=== PATIENT | male | born 1960 | race Caucasian/White ===

== ENCOUNTER → 2016-07-10 | Outpatient (CLI) | payer OTHER ==
[~2016-07-10] MED LIST: ALBUTEROL INH; AMARYL 2MG TABLE2 MG PO; ANTIVERT 25MG T25 MG PO; ASPIRIN 325MG325 MG PO; ASPIRIN EC81 MG PO; BYDUREON P2 MG/0.65 SQ; CAPOZIDE 25/15 T1 EA PO; CATAPRES 0.1MG0.1 MG PO; CLONIDINE HCL0.3 MG PO; FLEXERIL 10 MG10 MG PO; HYDRALAZINE HCL50 MG PO; IBUPROFEN600 MG PO; IBUPROFEN800 MG PO; IPRAT-ALBUT 0.5-3 ML INH; JANUVIA100 MG PO; LIPITOR TAB 2020 MG PO; LISINOPRIL40 MG PO; LOVAZA 1 GM1 G PO; METFORMIN HCL1000 MG PO; NEURONTIN 300300 MG PO; NITRO-TIME2.5 MG PO; NORVASC 5 MG TAB5 MG PO; PLAVIX 75 MG TA75 MG PO; PROTONIX40 M1 PO; TOPROL XL100 MG PO; TRICOR 145 MG145 MG PO; TYLENOL 325MG325 MG PO; VALACYCLOVIR500 MG PO; VALTREX500 MG PO; VENTOLIN HFA 66.7 GM INH; VENTOLIN HFA8 GM INH; VITAMIN D 11000 UNIT PO; WELLBUTRIN SR150 M1 PO; ZANTAC300 MG PO; ZYLOPRIM 100 M100 MG PO
[2016-07-10 16:17] LABS: BUN/CREATININE RATIO 19 (0-10)
== END ==
LOC: US 15:35
PROVIDERS: Internal Medicine Nephrology
DX: M32.9 Systemic lupus erythematosus, unspecified (principal); R80.9 Proteinuria, unspecified; N28.1 Cyst of kidney, acquired
CPT/HCPCS: 36415; 80048; 81001; 82043; 82570; 84156; 86039; 86160; 86225

== ENCOUNTER → 2016-08-27 | Outpatient (CLI) | payer OTHER | LOC: HEART 5 08:18 | DX: I20.9 Angina pectoris, unspecified (principal); R94.39 Abnormal result of other cardiovascular function study | CPT/HCPCS: 78452; A9502; J2785 ==

== ENCOUNTER → 2020-06-24 | Outpatient (CLI) | payer MEDICARE, OTHER ==
[~2020-06-24] MED LIST changes: +ADVAIR 250-501 EACH INH; +ALL DAY ALLERGY10 M2 PO; -AMARYL 2MG TABLE2 MG PO; +AMARYL4 MG PO; +ARTIFICIAL TEAR15 ML OP; +ASPIRIN EC325 MG PO; -ASPIRIN EC81 MG PO; +CATAPRES0.2 MG PO; -CLONIDINE HCL0.3 MG PO; +FENOFIBRATE160 MG PO; +FEOSOL325 MG PO; +FLONASE 0.05% N16 GM; +GABAPENTIN800 MG PO; +HYDRALAZINE HC100 MG PO; +HYDROCHLOROTHIA25 MG PO; +HYDROCODON-ACE1 EAC4 PO; +HYDROCODONE-AC1 EACH PO; +HYDROXYZINE HCL10 MG PO; +IRON325 M1 PO; +JARDIANCE25 MG PO; +LABETALOL HCL100 MG PO; +LEVOFLOXACIN750 MG PO; -LIPITOR TAB 2020 MG PO; +LIPITOR80 MG PO; +METHOCARBAMOL500 MG PO; +NEURONTIN800 MG PO; -NITRO-TIME2.5 MG PO; +NITRO-TIME9 MG PO; +NITROSTAT 0.40.4 MG SL; -NORVASC 5 MG TAB5 MG PO; +NORVASC10 MG PO; +RANEXA1000 MG PO; -TRICOR 145 MG145 MG PO; +TRICOR PO; +VITAMIN B-121000 MCG PO; +VITAMIN D3125 MCG PO; +VITAMIN D350 MC3 PO
== END ==
LOC: KOH-I 14:53
DX: M50.30 Other cervical disc degeneration, unspecified cervical region (principal); M50.322 Other cervical disc degeneration at C5-C6 level
CPT/HCPCS: 72125

== ENCOUNTER → 2020-07-01 | Outpatient (CLI) | payer MEDICARE, OTHER | LOC: HEART 5 10:12 | DX: I50.22 Chronic systolic (congestive) heart failure (principal); I25.5 Ischemic cardiomyopathy; I51.7 Cardiomegaly; I34.0 Nonrheumatic mitral (valve) insufficiency | CPT/HCPCS: 93306 ==

== ENCOUNTER → 2020-07-05 | Outpatient (CLI) | payer MEDICARE, OTHER | LOC: RAD 11:59 | DX: I11.0 Hypertensive heart disease with heart failure (principal); I50.22 Chronic systolic (congestive) heart failure; I25.5 Ischemic cardiomyopathy; I47.2 Ventricular tachycardia; Z45.02 Encounter for adjustment and management of automatic implantable cardiac defibrillator; Z20.822 Contact with and (suspected) exposure to COVID-19 | CPT/HCPCS: 71046; U0003 ==

== ENCOUNTER 2020-07-09 07:24 | Outpatient (CLI) | payer MEDICARE, OTHER ==
[~2020-07-09] VITALS: Ht 188 cm; Wt 96.2 kg
[~2020-07-09 07:24] MED LIST changes: -ADVAIR 250-501 EACH INH; -ALL DAY ALLERGY10 M2 PO; -FLONASE 0.05% N16 GM; -HYDROCODON-ACE1 EAC4 PO; -HYDROCODONE-AC1 EACH PO; -HYDROXYZINE HCL10 MG PO; -IRON325 M1 PO; -JARDIANCE25 MG PO; -LEVOFLOXACIN750 MG PO; -METHOCARBAMOL500 MG PO; -NITROSTAT 0.40.4 MG SL; -VITAMIN D350 MC3 PO
[2020-07-09] MEDS ORDERED: ALL DAY ALLERGY10 M2 PO (08:27)
[2020-07-09] MEDS ORDERED: ADVAIR 250-501 EACH INH (08:27)
[2020-07-09] MEDS ORDERED: FLONASE 0.05% N16 GM (08:28)
[2020-07-09] MEDS ORDERED: HYDROXYZINE HCL10 MG PO (08:29)
[2020-07-09] MEDS ORDERED: HYDROCODONE-AC1 EACH PO (08:29)
[2020-07-09] MEDS ORDERED: JARDIANCE25 MG PO (08:29)
[2020-07-09] MEDS ORDERED: METHOCARBAMOL500 MG PO (08:30)
[2020-07-09] MEDS ORDERED: NITROSTAT 0.40.4 MG SL (08:30)
[2020-07-09] MEDS ORDERED: VITAMIN D350 MC3 PO (08:31)
[2020-07-09] MEDS ORDERED: VENTOLIN HFA 66.7 GM INH (08:31)
[2020-07-09] MEDS ORDERED: HYDROCODON-ACE1 EAC4 PO (10:40)
[2020-07-09] MEDS ORDERED: LEVOFLOXACIN750 MG PO (10:40)
[2020-07-09] MEDS ORDERED: IRON325 M1 PO (13:36)
--- NOTE | 2020-07-10 13:11 | NUR ---
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 FOLLOW UP WITH MD SCHEDULED ONE WEEK AND 4 WEEKS. PAIN MED Q 6HRS PRN FOR 5 DAYS ONLY TAKE LEVAQUIN UNTIL COMPLETE. MEDS AT PHARMACY PAWEL [facility] VERBALIZED UNDERSTANDING. AURORA HUTCHINSON R.N.
== END 2020-07-10 14:15 | disposition home or self-care (01) ==
LOC: CATH 07:24 → MED SURG 4 10:59 → CATH 07-10 14:15
DX: Z45.02 Encounter for adjustment and management of automatic implantable cardiac defibrillator (principal); I11.0 Hypertensive heart disease with heart failure; I50.22 Chronic systolic (congestive) heart failure; I25.5 Ischemic cardiomyopathy; I47.2 Ventricular tachycardia; I25.119 Atherosclerotic heart disease of native coronary artery with unspecified angina pectoris; I25.2 Old myocardial infarction; J44.9 Chronic obstructive pulmonary disease, unspecified; K21.9 Gastro-esophageal reflux disease without esophagitis; F32.9 Major depressive disorder, single episode, unspecified; E78.5 Hyperlipidemia, unspecified; M06.9 Rheumatoid arthritis, unspecified; E11.9 Type 2 diabetes mellitus without complications; F17.210 Nicotine dependence, cigarettes, uncomplicated; Z95.5 Presence of coronary angioplasty implant and graft; Z88.8 Allergy status to other drugs, medicaments and biological substances; Z79.82 Long term (current) use of aspirin; Z79.02 Long term (current) use of antithrombotics/antiplatelets; Z79.84 Long term (current) use of oral hypoglycemic drugs; Z79.899 Other long term (current) drug therapy
CPT/HCPCS: 33240; 82962; 93641; 94664; 94760; 99152; 99153; C1721; J2250; J2270; J3010; J3370; J7040; J7050; J7070

== ENCOUNTER → 2020-10-10 | Outpatient (CLI) | payer MEDICARE, OTHER ==
[~2020-10-10] MED LIST changes: +ADVAIR 250-501 EACH INH; +ALL DAY ALLERGY10 M2 PO; +FLONASE 0.05% N16 GM; +HYDROCODON-ACE1 EAC4 PO; +HYDROCODONE-AC1 EACH PO; +HYDROXYZINE HCL10 MG PO; +IRON325 M1 PO; +JARDIANCE25 MG PO; +LEVOFLOXACIN750 MG PO; +METHOCARBAMOL500 MG PO; +NITROSTAT 0.40.4 MG SL; +VITAMIN D350 MC3 PO
[2020-10-10 15:12] LABS: HEMOGLOBIN 14.6 gm/dl (14.0-17.5); RED BLOOD COUNT 4.61 M/UL (4.20-5.50); WHITE BLOOD COUNT 7.5 K/UL (4.5-11.0)
[2020-10-10 15:48] LABS: BUN/CREATININE RATIO 28 (0-10)
== END ==
LOC: LAB 13:42
PROVIDERS: Nurse Practitioner Family
DX: R30.0 Dysuria (principal); I10 Essential (primary) hypertension; E53.8 Deficiency of other specified B group vitamins; E55.9 Vitamin D deficiency, unspecified; D64.9 Anemia, unspecified
CPT/HCPCS: 36415; 80053; 81001; 82607; 82728; 83540; 83550; 85025; 87086

== ENCOUNTER → 2021-03-12 | Outpatient (CLI) | payer MEDICARE, OTHER | LOC: KOH-I 11:23 | DX: Z87.891 Personal history of nicotine dependence (principal); R91.8 Other nonspecific abnormal finding of lung field | CPT/HCPCS: 71271 ==

== ENCOUNTER → 2021-04-08 | Outpatient (CLI) | payer MEDICARE, OTHER | LOC: KOH-I 04-07 16:00 → CT 13:58 → EXRD 13:58 → KOH-I 14:00 | DX: I65.23 Occlusion and stenosis of bilateral carotid arteries (principal); G44.89 Other headache syndrome; R42 Dizziness and giddiness | CPT/HCPCS: 70450; 93880 ==

== ENCOUNTER → 2021-05-21 | Outpatient (CLI) | payer MEDICARE, OTHER | LOC: KOH-I 15:41 | DX: R91.1 Solitary pulmonary nodule (principal); J84.10 Pulmonary fibrosis, unspecified | CPT/HCPCS: 71250 ==

== ENCOUNTER → 2021-09-26 | Outpatient (CLI) | payer MEDICARE, OTHER | LOC: KOH-I 14:51 | DX: R05.9 Cough, unspecified (principal) | CPT/HCPCS: 71046 ==

== ENCOUNTER 2021-10-30 08:55 | Day surgery (SDC) | payer MEDICARE, OTHER ==
[~2021-10-30] VITALS: Ht 188 cm; Wt 89.8 kg
[~2021-10-30 08:55] MED LIST changes: +ALBUTEROL2.5 MG/3 M INH; +ASPIR-TRIN325 MG PO; -CATAPRES0.2 MG PO; +CLONIDINE HCL0.2 MG PO; +HYDROCODON-ACE1 EAC6 PO; -HYDROCODONE-AC1 EACH PO; -LOVAZA 1 GM1 G PO; +MONTELUKAST SOD10 MG PO; +OMEGA-3 ACID ETH1 GM PO; +PROVENTIL HFA6.7 GM INH; +SOTALOL80 MG PO; +VITAMIN D21250 MCG PO
[2021-10-30] MEDS ORDERED: NITRO-TIME9 MG PO (10:19)
[2021-10-30] MEDS ORDERED: VITAMIN D350 MCG PO (15:04)
[2021-10-30] MEDS ORDERED: GABAPENTIN800 MG PO (15:15)
== END 2021-10-31 07:31 | disposition home or self-care (01) ==
LOC: OR 08:55 → M/S 14:02 → OR 10-31 07:31
DX: Z12.11 Encounter for screening for malignant neoplasm of colon (principal); K63.5 Polyp of colon; K57.30 Diverticulosis of large intestine without perforation or abscess without bleeding; K64.1 Second degree hemorrhoids; K29.60 Other gastritis without bleeding; K31.9 Disease of stomach and duodenum, unspecified; Z86.010 Personal history of colon polyps; I25.10 Atherosclerotic heart disease of native coronary artery without angina pectoris; I11.0 Hypertensive heart disease with heart failure; I50.9 Heart failure, unspecified; E78.5 Hyperlipidemia, unspecified; J44.9 Chronic obstructive pulmonary disease, unspecified; K21.9 Gastro-esophageal reflux disease without esophagitis; M19.90 Unspecified osteoarthritis, unspecified site; Z87.891 Personal history of nicotine dependence; E11.65 Type 2 diabetes mellitus with hyperglycemia; Z95.5 Presence of coronary angioplasty implant and graft; Z79.82 Long term (current) use of aspirin; Z79.84 Long term (current) use of oral hypoglycemic drugs; Z79.899 Other long term (current) drug therapy
CPT/HCPCS: 82962; J2250; J2704; J3010; J7040